=== PATIENT | male | born 1935 | race Caucasian/White ===

== ENCOUNTER → 2018-02-19 | Outpatient (CLI) | payer OTHER | LOC: CLAB 14:52 | PROVIDERS: ATTEND Physician Assistant | DX: K59.00 Constipation, unspecified (principal); I70.0 Atherosclerosis of aorta; I70.8 Atherosclerosis of other arteries; K44.9 Diaphragmatic hernia without obstruction or gangrene | CPT/HCPCS: 74019-PO ==